=== PATIENT | female | born 2000 | race Caucasian/White ===

== ENCOUNTER 2024-04-26 07:27 | Emergency (ER) | payer MEDICAID, SELFPAY ==
[2024-04-26 07:46] VITALS: BP 135/83; RESP 18; TEMP 36.8; O2SAT 95
[2024-04-26 07:47] VITALS: BMI 36.3
--- NOTE | 2024-04-26 07:50 | XR_ITS ---
Examination: PA lateral chest 2 views TECHNIQUE: Upright PA lateral chest 2 views Exam date and time: April 26, 2024 0759 hours INDICATIONS: Coughing fever beginning 2 days ago FINDINGS: Normal heart size Lungs are clear. The osseous structures are intact IMPRESSION: No active disease
--- NOTE | 2024-04-26 07:55 | EDNOTE_ITS ---
Upper Respiratory Inf. RME/HPI General Chief Complaint: Flu Like Symptoms Stated Complaint: PERSISTANT COUGH, STUFFY NOSE, NIGHT SWEATS X 1 WK Time Seen by Provider: 04/26/24 07:41 Source: patient Arrival date/time: 04/26/24 07:27 23-year-old female with no known medical history presents to the emergency room with a chief complaint of cough, congestion, night sweats x 1 week Mode of arrival: ambulatory Limitations: no limitations Related Data Previous Rx's ?Medication ?Instructions ?Recorded ibuprofen 800 mg tablet 800 mg PO TID PRN pain #30 t abs 03/16/23 acetaminophen 325 mg capsule 650 mg (2 x 325 mg) PO QI D PRN 04/26/24 fever or pain 7 days #30 caps albuterol sulfate 90 mcg/actuation 2 inh inhalation Q6 H PRN shortness 04/26/24 breath activated powder inhaler of breath or wheezing #1 ea Allergies Allergy/AdvReac Type Severity Reaction Status Date / Time No Known Allergies Allergy Verified 04/26/24 07:34 Review of Systems Review of Systems Systems Reviewed: All systems reviewed, normal except as documented Constitutional Constitutional: Reports system reviewed and no additional complaints, except as documented, Denies fatigue, Reports fever(s), Denies headache(s) and Denies weakness Eyes Eyes: Reports system reviewed and no additional complaints, except as documented, Denies blurry vision and Denies change in vision ENT Ears, Nose, Mouth, and Throat: Reports system reviewed and no additional complaints, except as documented, Denies otalgia, Denies headache(s), Denies n joycelyn congestion, Denies throat swelling and Denies vertigo Cardiovascular Cardiovascular: Reports system reviewed and no additional complaints, except as documented, Denies chest pain, Denies dyspnea and Denies dyspnea on exertion Respiratory Respiratory: Reports system reviewed and no additional complaints, except as documented, Reports chest congestion, Reports cough, Denies dyspnea, Denies dyspnea on exertion and Denies wheezing Gastrointestinal Gastrointestinal: Reports system reviewed and no additional complaints, except as documented, Denies abdominal pain, Denies cramping, Denies nausea and Denies vomiting Genitourinary Genitourinary: Reports system reviewed and no additional complaints, except as documented Musculoskeletal Musculoskeletal: Reports system reviewed and no additional complaints, except as documented and Denies back pain Integumentary/Breasts Skin/Breast: Reports system reviewed and no additional complaints, except as documented and Denies wounds Neurologic Neurologic: Reports system reviewed and no additional complaints, except as documented, Denies confusion, Denies headache(s), Denies lack of coordination, Denies vertigo and Denies weakness Psychiatric Psychiatric: Reports system reviewed and no additional complaints, except as documented, Denies anxiety, Denies confusion, Denies depression, Denies paranoia, Denies suicidal ideation and Denies tactile hallucinations Endocrine Endocrine: Reports system reviewed and no additional complaints, except as documented and Denies fatigue Hematologic/Lymphatic Hematologic/Lymphatic: Reports system reviewed and no additional complaints, except as documented and Denies lymphadenopathy Allergic/Immunologic Allergic/Immunologic: Reports system reviewed and no additional complaints, except as documented, Denies throat swelling, Denies urticaria and Denies wheezing Past Medical History Social History SMOKING STATUS: Former smoker ED Exam General Limitations: Present no limitations General appearance: Present alert and in no apparent distress Head Head exam: Present atraumatic Eye Eye exam: Present normal appearance, PERRL and EOMI ENT ENT exam: Present normal exam, normal oropharynx and mucous membranes moist Neck Neck exam: Present normal inspection, full ROM and trachea midline Chest Chest inspection: Present normal inspection and symmetric chest wall rise Respiratory Respiratory exam: Present normal lung sounds bilaterally; Absent respiratory distress, wheezes, stridor, accessory muscle use or prolonged expiratory phase Cardiovascular Cardiovascular exam: Present regular rate, normal rhythm and normal heart sounds Abdominal Exam Abdominal exam: Present soft and normal bowel sounds Extremities Exam Extremities exam: Present normal inspection and full ROM Back Exam Back exam: Present normal inspection and full ROM Neurological Exam Neurological exam: Present alert, oriented X3 and CN II-XII intact Psychiatric Psychiatric exam: Present normal affect and normal mood Skin Skin exam: Present warm, dry, intact and normal color Course Quality Measures none Orders Category Date Time Status Bedside COVID-19 Antigen Test NOW Care 04/26/24 07:50 Active Bedside Influenza A&B Antigen Test NOW Care 04/26/24 07:50 Completed XR chest 2V Stat Exams 04/26/24 07:50 Completed Vital Signs Vital signs: Vital Signs Temperature 98.2 F 04/26/24 07:46 Respiratory Rate 18 04/26/24 07:46 Blood Pressure 135/83 H 04/26/24 07:46 Pulse Oximetry (%) 95 04/26/24 07:46 Oxygen Delivery Method Room Air 04/26/24 07:46 Upper Respiratory Infection MDM Narrative MDM Narrative:: 23-year-old female with no known medical history presents to the emergency room with a chief complaint of cough, congestion, night sweats x 1 week Patient is hemodynamically stable and in no apparent distress. There is no tachypnea, tachycardia, O2 saturation is 95% on room air Physical examination shows clear bilateral lung sounds with no wheezing stridor or any abnormal breath sounds Chest x-ray was negative for any pneumonic infiltrates. Patient tested negative for any influenza or COVID-19 Patient was discharged and educated to follow-up with primary care provider return to the emergency room for any evidence of worsening signs or symptoms Patient data External records reviewed:: [facility] previous records Clinical information provided by:: patient Social determinants that could affect healthcare access:: none Patient has the following chronic illnesses:: No chronic illness How is presenting disease/condition affected by chronic disease/condition?: no chronic disease Evaluation data The following diagnostics were reviewed and interpreted by me:: lab results and radiology exam(s) Lab and/or radiology exams considered but not ordered:: Labs and radiology exams considered and ordered Interpretation Summary: Chest x-ray-no pneumonic infiltrates Medications / Prescriptions Medications or Prescriptions considered but not ordered:: No medication given Medication administrations:: No medication given Consultations Consultation(s) initiated? (list below): No Diagnosis Upper Respiratory Differential Diagnosis: upper respiratory infection, viral infection, bronchitis, influenza and pharyngitis Most likely diagnosis given after review of the tests above:: Upper respiratory infection Admission Indicated Admission indicated?: not indicated Admission Request Was there a request for admission?: No Disposition Plan Disposition Plan: Discharge Discharge Attestation Discharge Attestation: The patient and all family members were given an opportunity to ask questions and understood the discharge instructions. Discharge instructions specifically effects, indications for sooner follow up or return to the emergency department, and the expected course of current diagnosis. Patient condition: Stable Discharge Plan Plan Patient Disposition: HOME (Self Care) Disposition Comment: Stable Prescriptions/Referrals Prescriptions/Med Rec: New acetaminophen 325 mg capsule 650 mg PO QID PRN (Reason: fever or pain) 7 Days Qty: 30 0RF albuterol sulfate 90 mcg/actuation aerosol powdr breath activated 2 inh inhalation Q6H PRN (Reason: shortness of breath or wheezing) Qty: 1 0RF No Action ibuprofen 800 mg tablet 800 mg PO TID PRN (Reason: pain) Qty: 30 0RF Referrals: No Primary/Family,Physician [Primary Care Provider] - In 1 week Problem List Clinical Impression: Upper respiratory infection Patient/Caregiver Discharge Instructions Education Materials: ED URI, Viral, No Abx (Adult) Additional Instructions: Please follow-up with your primary care provider in the next 24 to 48 hours. You have an upper respiratory infection. Your chest x-ray was negative for any pneumonic infiltrates. The treatment for this is symptom management. Please continue to take Tylenol and ibuprofen for fever management. Please increase your oral fluid intake. For any evidence of worsening signs or symptoms please return to the emergency room immediately Print Language: Niuean Stand Alone Forms: Marnie Award Info., Patient Portal Info Letter
--- NOTE | 2024-04-26 11:45 | PC.NURSE ---
CALLED PATIENT IN THE LOBBY AND OUTSIDE, NO ANSWER RECIEVED.
== END 2024-04-26 12:05 | disposition home or self-care (01) ==
PROVIDERS: Emergency Provider Emergency Medicine
DX: J06.9 Acute upper respiratory infection, unspecified (principal); Z87.891 Personal history of nicotine dependence
CPT/HCPCS: 71046; 87400; 87811; 99283

== ENCOUNTER 2024-09-15 07:49 | Emergency (ER) | payer MEDICAID, SELFPAY ==
[2024-09-15 08:25] VITALS: BP 121/77; PULSE 79; RESP 18; TEMP 36.8; O2SAT 99
--- NOTE | 2024-09-15 08:32 | EDNOTE_ITS ---
Lower Extremity Injury RME/HPI General Chief Complaint: Extremity Injury, Lower Stated Complaint: L) KNEE PAIN Time Seen by Provider: 09/15/24 08:31 Source: patient Arrival date/time: 09/15/24 07:49 Mode of arrival: wheelchair Limitations: no limitations RME / HPI RME / HPI Narrative: 24-year-old female presents to ED with complaint of left knee pain that began 2 years ago. Patient had been taking a shower and felt a crunching sensation to her left knee. Denies recent trauma. Patient was post to have physical therapy however this did not occur. MD complaint: knee injury (Denies any injury.) Onset (ago): year(s) (2 years) Injury: Left: knee Severity: moderate Severity scale (1-10): 5 Relieving factors: nothing Exacerbating factors: weight bearing and movement Related Data Previous Rx's ?Medication ?Instructions ?Recorded ibuprofen 800 mg tablet 800 mg PO TID PRN pain #30 t abs 03/16/23 albuterol sulfate 90 mcg/actuation 2 inh inhalation Q6 H PRN shortness 04/26/24 breath activated powder inhaler of breath or wheezing #1 ea Allergies Allergy/AdvReac Type Severity Reaction Status Date / Time No Known Allergies Allergy Verified 09/15/24 07:53 Review of Systems Constitutional Constitutional: Reports system reviewed and no additional complaints, except as documented Eyes Eyes: Reports system reviewed and no additional complaints, except as documented, Denies dry eyes, Denies exophthalmos and Reports floaters Cardiovascular Cardiovascular: Denies chest pain with activity and Denies claudication ED Exam Narrative Physical exam: The left knee is tender to palpation in the superior aspect of the patella. There is mild edema present when compared to the right. There is decreased range of motion secondary to subjective pain. There is no apparent tendon laxity or bony deformity. There is no ecchymoses present. General Limitations: Present no limitations General appearance: Present alert and in no apparent distress Head Head exam: Present atraumatic Eye Eye exam: Present normal appearance and EOMI ENT ENT exam: Present normal exam, normal oropharynx and mucous membranes moist Neck Neck exam: Present normal inspection Extremities Exam Extremities exam: Present normal inspection and full ROM Back Exam Back exam: Present normal inspection and full ROM Neurological Exam Neurological exam: Present alert and oriented X3 Psychiatric Psychiatric exam: Present normal affect and normal mood Skin Skin exam: Present warm, dry, intact and normal color Course Course Course Narrative: Patient will have a left knee x-ray. Quality Measures none Orders Category Date Time Status XR knee LT 3V Stat Exams 09/15/24 08:35 Completed Vital Signs Vital signs: Vital Signs Temperature 98.2 F 09/15/24 08:25 Pulse Rate 79 09/15/24 08:25 Respiratory Rate 18 09/15/24 08:25 Blood Pressure 121/77 09/15/24 08:25 Pulse Oximetry (%) 99 09/15/24 08:25 Oxygen Delivery Method Room Air 09/15/24 08:25 Pulse ox room air is 99% Extremity Injury, Lower MDM Narrative MDM Narrative:: X-ray of the left knee demonstrates no apparent fracture or bony deformities. Patient will be discharged in no apparent distress. I was sent to the pharmacy of her choice ibuprofen 600 mg. She is to follow-up primary care physician and request a referral for either a CT of the left knee or a MRI. Patient will be discharged in no apparent distress Patient data External records reviewed:: Other (specify) (NA) Clinical information provided by:: patient Social determinants that could affect healthcare access:: none (NA) Patient has the following chronic illnesses:: NA How is presenting disease/condition affected by chronic disease/condition?: caused by (Chronic left knee pain) Evaluation data The following diagnostics were reviewed and interpreted by me:: radiology exam(s) Lab and/or radiology exams considered but not ordered:: Radiology demonstrates no apparent fracture Interpretation Summary: N/A Medications / Prescriptions Medications or Prescriptions considered but not ordered:: N/A Medication administrations:: N/A Consultations Consultation(s) initiated? (list below): No Consultation #1 (Physician, Specialty, Details): N/A Diagnosis Extremity Injury, Lower Differential Diagnosis: acute internal derangement of knee, fracture of femur and fracture of hip Most likely diagnosis given after review of the tests above:: N/A Admission Indicated Admission indicated?: not indicated Explain why admission is indicated or not indicated:: N/A Admission Request Was there a request for admission?: No Admission Attestation Admission request attestation: N/A Disposition Plan Disposition Plan: Discharge Discharge Attestation Discharge Attestation: The patient and all family members were given an opportunity to ask questions and understood the discharge instructions. Discharge instructions specifically effects, indications for sooner follow up or return to the emergency department, and the expected course of current diagnosis. Patient condition: Stable Discharge Plan Plan Patient Disposition: HOME (Self Care) Discharge Disposition comment: Discharge in no apparent distress Patient condition on transfer: Stable Prescriptions/Referrals Prescriptions/Med Rec: No Action ibuprofen 800 mg tablet 800 mg PO TID PRN (Reason: pain) Qty: 30 0RF albuterol sulfate 90 mcg/actuation aerosol powdr breath activated 2 inh inhalation Q6H PRN (Reason: shortness of breath or wheezing) Qty: 1 0RF Referrals: Home Obrien MD [Primary Care Provider] - In 1 week Problem List Clinical Impression: Chronic knee pain Patient/Caregiver Discharge Instructions Discharge Activity: activity as tolerated Education Materials: ED Chronic Pain, ED Knee Sprain Print Language: Chadian Stand Alone Forms: Marnie Award Info., Patient Portal Info Letter PA/MEDICAL RECORD ASSISTANT Supervising Physician PA/MEDICAL RECORD ASSISTANT Supervising Physician: EMMANUEL
--- NOTE | 2024-09-15 08:35 | XR_ITS ---
Examination: Knee, left , 3 views Technique: Knee AP, lateral, oblique 3 views Date and time of exam: September 15, 2024 0836 hours INDICATIONS: Patient fell 3 days ago with injury to the knee, knee pain FINDINGS: No fracture or dislocation No foreign body IMPRESSION: No fracture or dislocation
== END 2024-09-15 09:29 | disposition home or self-care (01) ==
PROVIDERS: Emergency Provider Physician Assistant; PCP Student in an Organized Health Care Education/Training Program
DX: M25.562 Pain in left knee (principal); G89.29 Other chronic pain
CPT/HCPCS: 73562; 99283